=== PATIENT | male | born 1985 | race African-American/Black ===

== ENCOUNTER 2017-10-08 13:59 | Emergency (ER) | payer SELFPAY ==
[2017-10-08] MEDS ORDERED: Gentamicin Ophth Soln 0.3% 5 ml Bottle ONE (14:13)
[2017-10-08] MEDS ORDERED: Amoxicillin/Potassium Clav 875 MG TAB ONE (14:17)
[2017-10-08] MEDS ORDERED: cefTRIAXone\\ROCEPHIN 1 GM VIAL ONE (14:24)
== END 2017-10-08 14:33 | disposition home or self-care (01) ==
LOC: BURERS 13:59
DX: H60.92 Unspecified otitis externa, left ear (principal)
CPT/HCPCS: 96372; J0696

== ENCOUNTER 2020-08-13 22:12 | Emergency (ER) | payer OTHER, SELFPAY ==
[2020-08-13] MEDS ORDERED: Morphine 10 MG/ML VIAL ONE (22:42)
[2020-08-13] MEDS ORDERED: Ondansetron ODT 4 MG TAB ONE (22:42)
== END 2020-08-13 23:10 | disposition home or self-care (01) ==
LOC: BURERS 22:12
DX: S83.91XA Sprain of unspecified site of right knee, initial encounter (principal); V89.2XXA Person injured in unspecified motor-vehicle accident, traffic, initial encounter
CPT/HCPCS: 96372; J2270; Q0162

== ENCOUNTER 2020-12-21 15:06 | Emergency (ER) | payer SELFPAY ==
[2020-12-21] MEDS ORDERED: HYDROcodone/Acetaminophen 10/325 mg Tablet ONE (16:13)
[2020-12-21] MEDS ORDERED: Ibuprofen 800 MG TAB ONE (16:13)
== END 2020-12-21 16:19 | disposition home or self-care (01) ==
LOC: BURERS 15:06
DX: M10.9 Gout, unspecified (principal)
CPT/HCPCS: 36415; 84550

== ENCOUNTER 2022-05-05 13:14 | Emergency (ER) | payer OTHER ==
[2022-05-05] MEDS ORDERED: Ibuprofen 800 MG TAB ONE (13:47)
== END 2022-05-05 13:52 | disposition home or self-care (01) ==
LOC: BURERS 13:14
DX: M76.9 Unspecified enthesopathy, lower limb, excluding foot (principal); I10 Essential (primary) hypertension; Z79.899 Other long term (current) drug therapy
CPT/HCPCS: 99283

== ENCOUNTER 2023-12-19 08:27 | Emergency (ER) | payer OTHER | END 2023-12-19 09:30 | disposition home or self-care (01) | LOC: BURERS 08:27 | DX: S13.4XXA Sprain of ligaments of cervical spine, initial encounter (principal); I10 Essential (primary) hypertension; F17.220 Nicotine dependence, chewing tobacco, uncomplicated; V89.2XXA Person injured in unspecified motor-vehicle accident, traffic, initial encounter | CPT/HCPCS: 70450; 72125; G0390 ==

== ENCOUNTER 2024-10-31 17:56 | Emergency (ER) | payer OTHER, SELFPAY ==
[2024-10-31 18:27] LABS: Glucose, Urine (Dipstick) Negative (Negative); Leukocyte Negative (Negative); Protein, Urine (Dipstick) Negative (Neg-Trace); Specific Gravity, Urine Less/Equal 1.005 (1.005-1.030)
[2024-10-31 18:31] LABS: Hematocrit 42.2 % (42.0-52.0); Hemoglobin 14.0 g/dL (14.0-18.0); Mean Corpuscular Hemoglobin 28.3 pg (27.0-31.0); Mean Corpuscular Volume 85.3 fl (78.0-98.0); Platelet Count 297 10x3/uL (130-400); Red Blood Cell (RBC) Count 4.95 mill/uL (4.70-6.10); White Blood Cell (WBC) Count 6.2 10x3/uL (4.8-10.8)
[2024-10-31 18:35] LABS: Bacteria/HPF None Seen HPF (None Seen); CAUTI Indications for Culture Dysuria,urgency,freq; RBC/HPF None Seen HPF (0-3); Urine Culture Reflex No No; WBC/HPF None Seen HPF (0-3)
[2024-10-31 18:37] LABS: Cocaine Metabolite Screen Negative (Negative); THC/Cannabinoid Screen Negative (Negative); Tricyclic Screen Negative (Negative)
[2024-10-31 18:44] LABS: ALT (SGPT) 25 U/L (Less than 45); AST (SGOT) 27 U/L (11-34); Albumin 4.2 g/dL (3.1-4.5); Alkaline Phosphatase 111 U/L (40-110); Anion Gap 17 mmol/L (10-20); BUN (Urea Nitrogen) 8 mg/dL (8.9-20.6); Bilirubin, Total 0.4 mg/dL (0.3-1.2); Calc. Creatinine Clearance 0 mL/min (70-130); Calcium 9.0 mg/dL (7.8-10.44); Carbon Dioxide 21 mmol/L (22-29); Chloride 107 mmol/L (98-107); Globulin 4.5 g/dL (2.4-3.5); Glucose 101 mg/dL (70-105); Potassium 3.9 mmol/L (3.5-5.1); Sodium 141 mmol/L (136-145)
[2024-10-31 18:50] LABS: MDiff Complete? YES; Platelet Adequacy Comment Appears Adequate
[2024-10-31] MEDS ORDERED: Ketorolac Tromethamine 30 MG (1 mL) VIAL ONE (19:33)
== END 2024-10-31 20:12 | disposition short-term general hospital (02) ==
LOC: BURERS 17:56
DX: M79.89 Other specified soft tissue disorders (principal); R79.89 Other specified abnormal findings of blood chemistry; I10 Essential (primary) hypertension; F17.220 Nicotine dependence, chewing tobacco, uncomplicated; W16.011A Fall into swimming pool striking water surface causing drowning and submersion, initial encounter; Y93.11 Activity, swimming; Z79.899 Other long term (current) drug therapy
CPT/HCPCS: 36415; 80053; 80306; 81001; 83605; 85025; 85379; 87040; 96374; J1885